=== PATIENT | female | born 1960 | race Caucasian/White ===

== ENCOUNTER 2017-11-10 14:58 | Emergency (ER) | payer MEDICARE, MEDICAID ==
[~2017-11-10] VITALS: Ht 149.9 cm; Wt 90.0 kg
[~2017-11-10 14:58] MED LIST: AMLODIPINE5 MG PO; ATROPINE 1% OPTH5 ML OP; BENADRYL 50MG C50 MG OR; BENAZEPRIL40 MG OR; BUMETANIDE1 MG PO; BUMETANIDE2 MG PO; FLEXERIL OR; GLIPIZIDE5 MG PO; KLOR-CON M2020 MEQ PO; LEVOTHYROXIN50 MCG OR; LEVOTHYROXIN75 MCG PO; LEVOTHYROXIN88 MC1 PO; LISINOPRIL20 MG PO; LISINOPRIL40 MG OR; LOPID600 MG PO; MEDDOSEPAK OR; METFORMIN500 MG PO; METOPROL TAR50 MG PO; METOPROLOL50 MG OR; TRAMADOL HCL50 MG OR; TRIAM/HCTZ1 CAP OR; WELLBUTRIN100 M1 OR
[2017-11-10 15:55] LABS: URINE BLOOD DIPSTICK LARGE (NEGATIVE); URINE GLUCOSE - DIPSTICK 500 mg/dL (NEGATIVE); URINE KETONE NEGATIVE (NEGATIVE); URINE LEUK ESTERASE NEGATIVE (NEGATIVE); URINE NITRITE - DIPSTICK NEGATIVE (Negative); URINE PH 5.5 (4.5-8.0); URINE PROTEIN - DIPSTICK >=300 mg/dL (NEG-TRACE); URINE SPECIFIC GRAVITY >=1.030; URINE UROBILINOGEN - DIPSTICK 0.2 E.U./dL (0.2)
[2017-11-10 15:56] LABS: HEMATOCRIT 43.6 % (37.0-47.0); HEMOGLOBIN 14.7 g/dl (12.0-16.0); IMMATURE GRANULOCYTES 0.6 % (0.0-5.0); MEAN CELL VOLUME 85.7 fL CALC (80.0-100.0); MEAN CORPUSCULAR HGB 28.9 pG CALC (26.0-32.0); MEAN CORPUSCULAR HGB CONC 33.7 g/L CALC (32.0-36.0); NEUT# 17.2 thou/uL (2.00-7.15); RED BLOOD COUNT 5.09 mill/uL (4.20-5.60); RED CELL DISTRI WIDTH 13.2 % (11.5-15.5)
[2017-11-10 15:57] LABS: URINE BILIRUBIN - DIPSTICK NEGATIVE (NEGATIVE); URINE CLARITY CLOUDY; URINE COLOR DK. YELLOW
[2017-11-10 16:07] LABS: URINE RBC 50-100 RBC/hpf (0-5); URINE SQUAMOUS EPITHELIAL CELL FEW EPI/hpf (0-FEW)
[2017-11-10 16:09] LABS: ALKALINE PHOSPHATASE 92 u/l (38-126); ANION GAP 16 (6-22 (CALC)); BILIRUBIN, TOTAL 0.9 mg/dL (0.0-1.4); BUN 12 mg/dL (7-17); BUN/CREATININE RATIO 13 (12-20 (CALC)); CARBON DIOXIDE 26 mmol/l (22-30); CHLORIDE 100 mmol/l (95-108); GFR 57 ML/MIN (>=60 (CALC)); GFR FOR AFR.AMER. > 60 ML/MIN (>=60 (CALC)); LIPASE 53 u/l (23-300); POTASSIUM 4.2 mmol/l (3.5-5.1); SGOT/AST 23 u/l (14-36); SGPT/ALT 28 u/l (9-52); SODIUM 137 mmol/l (137-146); TOTAL PROTEIN 7.9 g/dL (6.3-8.2)
[2017-11-10] MEDS ORDERED: METOPROL TAR25 MG PO (16:15)
[2017-11-10] MEDS ORDERED: DIPHEN/ATROP2.5 MG PO (16:16)
[2017-11-10] MEDS ORDERED: OMEPRAZOLE10 MG PO (16:17)
[2017-11-10] MEDS ORDERED: PROAIR HFA108 MCG/AC IN (16:18)
[2017-11-10] MEDS ORDERED: PRAVASTATIN20 MG PO (16:19)
[2017-11-10] MEDS ORDERED: ACTOS30 MG PO (16:20)
[2017-11-10] MEDS ORDERED: FARXIGA10 MG PO (16:20)
[2017-11-10] MEDS ORDERED: TRULICITY0.75 MG/0. (16:21)
[2017-11-10] MEDS ORDERED: HYDROCO/APAP1 TA9 PO (16:22)
[2017-11-10] MEDS ORDERED: CEPHALEXIN500 MG PO (16:22)
[2017-11-10] MEDS ORDERED: TAMSULOSIN0.4 MG PO (16:22)
[2017-11-10] MEDS ORDERED: MOTRIN400 MG PO (16:22)
[2017-11-10 16:40] VITALS: BP 138/77
== END 2017-11-10 17:00 | disposition home or self-care (01) ==
LOC: ED 14:58
PROVIDERS: Family Medicine
DX: N13.2 Hydronephrosis with renal and ureteral calculous obstruction (principal); I10 Essential (primary) hypertension; J44.9 Chronic obstructive pulmonary disease, unspecified; Z87.442 Personal history of urinary calculi

== ENCOUNTER 2018-11-29 14:40 | Emergency (ER) | payer MEDICARE, MEDICAID ==
[~2018-11-29] VITALS: Ht 149.9 cm; Wt 92.7 kg
[~2018-11-29 14:40] MED LIST changes: +ACTOS30 MG PO; +CEPHALEXIN500 MG PO; +DIPHEN/ATROP2.5 MG PO; +FARXIGA10 MG PO; +HYDROCO/APAP1 TA9 PO; +METOPROL TAR25 MG PO; +MOTRIN400 MG PO; +OMEPRAZOLE10 MG PO; +PRAVASTATIN20 MG PO; +PROAIR HFA108 MCG/AC IN; +TAMSULOSIN0.4 MG PO; +TRULICITY0.75 MG/0.
[2018-11-29 15:20] LABS: URINE BILIRUBIN - DIPSTICK NEGATIVE (NEGATIVE); URINE BLOOD DIPSTICK LARGE (NEGATIVE); URINE COLOR YELLOW; URINE GLUCOSE - DIPSTICK 500 mg/dL (NEGATIVE); URINE KETONE NEGATIVE (NEGATIVE); URINE PH 5.5 (4.5-8.0); URINE PROTEIN - DIPSTICK 100 mg/dL (NEG-TRACE); URINE SPECIFIC GRAVITY >=1.030; URINE UROBILINOGEN - DIPSTICK 0.2 E.U./dL (0.2)
[2018-11-29 15:22] LABS: URINE LEUK ESTERASE SMALL (NEGATIVE); URINE NITRITE - DIPSTICK POSITIVE (Negative)
[2018-11-29] MEDS ORDERED: PYRIDIUM200 MG PO (15:31)
[2018-11-29] MEDS ORDERED: KEFLEX500 M1 PO (15:31)
[2018-11-29 15:32] LABS: URINE RBC TNTC RBC/hpf (0-5)
[2018-11-29 15:33] LABS: URINE BACTERIA MODERATE hpf; URINE SQUAMOUS EPITHELIAL CELL FEW EPI/hpf (0-FEW)
[2018-11-29 15:35] VITALS: BP 187/86
== END 2018-11-29 15:35 | disposition home or self-care (01) ==
LOC: ED 14:40
DX: N39.0 Urinary tract infection, site not specified (principal); B96.20 Unspecified Escherichia coli [E. coli] as the cause of diseases classified elsewhere; E11.9 Type 2 diabetes mellitus without complications; I10 Essential (primary) hypertension; J44.9 Chronic obstructive pulmonary disease, unspecified; Z79.84 Long term (current) use of oral hypoglycemic drugs